=== PATIENT | female | born 1945 | race Caucasian/White ===

== ENCOUNTER → 2021-03-13 | Outpatient (CLI) | payer OTHER | LOC: MAMO 12:58 | DX: Z12.31 Encounter for screening mammogram for malignant neoplasm of breast (principal); Z78.0 Asymptomatic menopausal state | CPT/HCPCS: 77063; 77067; 77080 ==

== ENCOUNTER 2021-12-02 09:02 | Emergency (ER) | payer OTHER ==
[~2021-12-02] VITALS: Ht 157.5 cm; Wt 81.6 kg
[2021-12-02 10:51] LABS: HEMOGLOBIN 13.2 gm/dl (12.3-15.3); RED BLOOD COUNT 4.21 M/UL (4.00-5.10); WHITE BLOOD COUNT 8.3 K/UL (4.5-11.0)
[2021-12-02 11:33] LABS: BUN/CREATININE RATIO 19 (0-10)
[2021-12-02] MEDS ORDERED: K-TAB ER20 MEQ PO (12:32)
[2021-12-02] MEDS ORDERED: PREDNISONE 10 M10 MG PO (12:39)
== END 2021-12-02 13:16 | disposition home or self-care (01) ==
LOC: ER1 09:02
PROVIDERS: Physician Assistant
DX: U07.1 COVID-19 (principal); Z23 Encounter for immunization; E87.6 Hypokalemia; J44.9 Chronic obstructive pulmonary disease, unspecified
CPT/HCPCS: 0240U; 36415; 71045; 80053; 82550; 82553; 84484; 85025; 93005; 94664; 99284; M0222